=== PATIENT | female | born 1980 | race Caucasian/White ===

== ENCOUNTER 2019-10-19 18:12 | Emergency (ER) | payer BC ==
[~2019-10-19] VITALS: Ht 172.7 cm; Wt 81.8 kg
[2019-10-19 18:18] VITALS: Ht 172.7 cm; Wt 81.8 kg
[2019-10-19] MEDS ORDERED: VOLTAREN75 MG PO (19:58)
[2019-10-19 20:20] VITALS: BP 126/80
== END 2019-10-19 20:21 | disposition home or self-care (01) ==
LOC: D.ER 18:12
DX: S59.902A Unspecified injury of left elbow, initial encounter (principal); Y09 Assault by unspecified means; Y93.9 Activity, unspecified; Y92.9 Unspecified place or not applicable

== ENCOUNTER 2021-06-01 09:00 | Emergency (ER) | payer BC ==
[~2021-06-01] VITALS: Ht 172.7 cm; Wt 81.8 kg
[~2021-06-01 09:00] MED LIST: VOLTAREN75 MG PO
[2021-06-01 09:06] VITALS: BP 150/99; Ht 172.7 cm; Wt 81.8 kg
[2021-06-01 09:43] LABS: BASOPHILS 1.5 % (0-2); EOSINOPHILS 1.2 % (0-7); HEMATOCRIT 40.1 % (36.0-48.0); HEMOGLOBIN 13.8 g/dL (12-16); LYMPHOCYTES 23.5 % (15-50); MCH 29.5 pg (26.0-34.0); MCHC 34.5 g/dL (31.0-37.0); MCV 85.4 fL (80.0-100.0); MONOCYTES 5.4 % (2-11); NEUTROPHILS 68.4 % (40-80); PLATELET COUNT 314 10x3/uL (130-400); RBC 4.69 10x6/uL (4.00-5.40); RDW 13.3 % (11.5-14.5); WBC 8.1 10x3/uL (4.8-10.8)
[2021-06-01 09:51] LABS: ANION GAP 16.6 mmol/L (8-16); CALCIUM 9.2 mg/dL (8.5-10.1); CREATININE - SERUM 1.1 mg/dL (0.6-1.3); POTASSIUM - SERUM 3.6 mmol/L (3.5-5.1)
[2021-06-01 09:57] LABS: ALBUMIN 4.2 g/dL (3.4-5.0); BILIRUBIN - TOTAL 0.61 mg/dL (0.2-1.3)
[2021-06-01 11:10] LABS: UDS - AMPHET NEGATIVE QUAL (NEGATIVE); UDS - BARB NEGATIVE QUAL (NEGATIVE); UDS - BENZO NEGATIVE QUAL (NEGATIVE); UDS - COCAINE NEGATIVE QUAL (NEGATIVE); UDS - OPIATE NEGATIVE QUAL (NEGATIVE); UDS - PCP NEGATIVE QUAL (NEGATIVE); UDS - THC NEGATIVE QUAL (NEGATIVE)
[2021-06-01 11:17] LABS: HCG URINE NEGATIVE (NEGATIVE)
[2021-06-01 11:47] LABS: BACTERIA FEW HPF (<MOD); BILIRUBIN NEGATIVE (NEGATIVE); KETONE 2+ mg/dL (< 1+); NITRITE NEGATIVE (NEGATIVE); SQUAMOUS EPITHELIAL 3 HPF (0-4); UROBILINOGEN NORMAL mg/dL (< 2); WHITE CELLS - URINE 7 HPF (0-4)
[2021-06-01] MEDS ORDERED: HYDROCODON-ACE1 EAC7 PO (12:36)
[2021-06-01] MEDS ORDERED: IBUPROFEN800 MG PO (12:36)
[2021-06-01] MEDS ORDERED: ZOFRAN ODT4 MG/UDTAB PO (12:36)
[2021-06-04] MEDS ORDERED: FLOMAX0.4 MG PO (06:18)
== END 2021-06-01 13:11 | disposition home or self-care (01) ==
LOC: D.ER 09:00
PROVIDERS: Emergency Medicine
DX: N20.1 Calculus of ureter (principal); R10.84 Generalized abdominal pain